=== PATIENT | female | born 1965 | race African-American/Black ===

== ENCOUNTER 2018-08-11 20:35 | Emergency (ER) | payer SELFPAY ==
[~2018-08-11] VITALS: Ht 170.2 cm; Wt 102.1 kg
[2018-08-11 20:46] VITALS: BP 120/72
--- NOTE | 2018-08-11 20:46 | NUR ---
ED Nurse Note: Patient walk in with cane c/o left lower back pain radiating down left leg for 1 week. Patient reports numbness below left knee. Patient was seen by PCP last week and prescribed gabapentin with no relief. pt denies trauma to the area.
--- NOTE | 2018-08-11 20:47 | NUR ---
ED Nurse Note: per pt she said she was helping lift somebody and that she felt a strain in her back. Since then she has been experiencing pain on her left leg.
[2018-08-11] MEDS ORDERED: ROBAXIN-750750 MG PO (21:26)
--- NOTE | 2018-08-11 21:33 | NUR ---
ER DISCHARGE NOTE: Patient is cleared to be discharged per ERMD, pt is aox4, on room air, with stable vital signs. pt was given dc and prescription instructions, pt was able to verbalize understanding, pt id band removed. pt is able to ambulate with steady gait on cane. pt took all belongings. accopmanied by daughter
[2018-08-11 21:34] VITALS: BP 120/72
--- NOTE | 2018-08-11 22:12 | Emergency Room Report ---
History of Present Illness General Chief Complaint: Back Pain-No Injury Source: Patient Present Illness HPI 52-year-old female presents ED for evaluation. Patient states that she helped lift a friend up last week and felt a pull in her lower back. States she's having pain in her lower back radiating down her left leg. Sharp, 10 out of 10 , radiating. she feels tingling sensation from the knee down. Denies bowel or bladder continence. Denies any leg or motor weakness. Patient was seen by her prior PMD and was prescribed tramadol and gabapentin. States there is no significant relief of pain. No other aggravating relieving factors. Denies any other associated symptoms Allergies: Coded Allergies: PENICILLINS (Verified Allergy, Unknown, 08/11/18) Patient History Past Medical History: none Past Surgical History: none Pertinent Family History: none Social History: Denies: smoking, alcohol use, drug use Last Menstrual Period: 12/2017 - GOPAL Now: No Immunizations: UTD Reviewed Nursing Documentation: PMH: Agreed; PSxH: Agreed Nursing Documentation-PMH Past Medical History: No Stated History Review of Systems All Other Systems: negative except mentioned in HPI Physical Exam Vital Signs Date Time Temp Pulse Resp B/P (MAP) Pulse Ox O2 Delivery O2 Flow Rate FiO2 08/11/18 20:40 98.4 77 16 120/72 98 Room Air Sp02 EP Interpretation: reviewed, normal General Appearance: no apparent distress, alert, GCS 15, non-toxic Head: normocephalic Eyes: bilateral eye normal inspection, bilateral eye PERRL ENT: normal ENT inspection Neck: normal inspection Respiratory: normal inspection Cardiovascular #1: normal inspection Gastrointestinal: normal inspection Rectal: deferred Genitourinary: no CVA tenderness Musculoskeletal: tender - paraspinal lumbar tenderness Neurologic: alert, oriented x3, responsive, motor strength/tone normal, sensory intact, speech normal Psychiatric: normal inspection Skin: normal inspection Lymphatic: normal inspection Medical Decision Making Diagnostic Impression: Primary Impression: Sciatica Qualified Codes: M54.32 - Sciatica, left side ER Course Hospital Course 52-year-old female presents ED complaining of lower back pain Differential diagnoses include: pyelonephritis, kidney stone, muscle strain, Lspine fracture Clinical course Patient placed on stretcher. After initial history, physical exam reveals female in no acute distress. There is no vertebral body tenderness. There is paraspinal lumbar tenderness. Positive straight leg raise 5 out of 5 motor strength to the legs. Patient states she also had an x-ray and was told by the doctor that she has sciatica. Patient states the tramadol is not helping. I reviewed CURES patient does not have history of recurrent narcotic use Patient states she does not tolerate Vicodin well. Patient is also asking how much this visit will cost her as she does not have insurance. I explained to the patient that I am unable to provide accurate information as to ED visit cost. Patient is worried about adding cost to her visit is declining medications here. Patient states she does not have money to fill additional prescriptions but states that she will fill a prescription for muscle relaxer. I will provide her a prescription for Robaxin There were no focal neurological deficits suggestive of emergent MRI. Patient can be discharged home at this time. I recommended patient that she needs to see a PMD given referral for physical therapy. I will provide referrals Diagnosis - sciatica Stable and discharged to home with prescription for robaxin. Followup with PMD. Return to ED if symptoms recur or worsen Last Vital Signs Date Time Temp Pulse Resp B/P (MAP) Pulse Ox O2 Delivery O2 Flow Rate FiO2 08/11/18 21:34 98.4 77 16 120/72 98 Room Air Status: improved Disposition: HOME, SELF-CARE Condition: Stable Scripts Methocarbamol* (ROBAXIN-750*) 750 Mg Tablet 750 MG PO TID, #21 TAB 0 Refills Prov: César Little MD 08/11/18 Referrals: NON PHYSICIAN (PCP) Ronald Mack [facility] Patient Instructions: César Randle MD Aug 11, 2018 22:12
== END 2018-08-11 21:33 | disposition home or self-care (01) ==
LOC: EMR 21:22
DX: M54.42 Lumbago with sciatica, left side (principal); Z88.0 Allergy status to penicillin
CPT/HCPCS: 99282